=== PATIENT | female | born 1960 | race Caucasian/White ===

== ENCOUNTER 2018-03-17 07:15 | Day surgery (SDC) | END 2018-03-17 15:20 | disposition home or self-care (01) ==

== ENCOUNTER 2018-12-08 07:12 | Day surgery (SDC) | payer OTHER ==
[2018-12-08] VITALS (11 sets, daily range): BP systolic 110–162; BP diastolic 62–82; PULSE 57–76; RESP 12–17; Ht 157.5 cm; Wt 73.5 kg
[~2018-12-08] VITALS: Ht 157.5 cm; Wt 73.5 kg
[~2018-12-08 07:12] MED LIST: ATOR40TA68 PO; CALC1TAB79 PO; DIAZEPAM 5 MG TAB PO PRN; DIPHENHYDRAMINE 50 MG CAP PO PRN; FAMOTIDINE 20 MG TAB PO PRN; HYDR25TA6 PO; LOSA25TA12 PO; SOD CHLORIDE 0.45% 1,000 ML IV SCH; VIT1CAPS10 PO; VIT1TABL46 PO
[2018-12-08] MEDS ORDERED: ATOR10TA65 ORAL (08:44)
[2018-12-08] MEDS ORDERED: OMEP40CA6 ORAL (08:44)
[2018-12-08] MEDS ORDERED: GABA100C14 PO (08:44)
[2018-12-08] MEDS ORDERED: LIDOCAINE 1% (MDV) 20 ML INJ ONE (08:59)
[2018-12-08] MEDS ORDERED: IODIXANOL LOCM 100 ML BTL ONE ×2 (08:59→10:26)
[2018-12-08] MEDS ORDERED: HEPARIN 1000 UNITS/NS (A-LINE) 1,000 ML ONE (08:59)
[2018-12-08] MEDS ORDERED: MIDAZOLAM 1 MG/ML 2 ML INJ ONE (09:44)
[2018-12-08] MEDS ORDERED: FENTAnyl 50 MCG/ML VIAL ONE (09:44)
--- NOTE | 2018-12-08 10:39 | SIPON ---
Date/Time of Note Date/Time of Note DATE: 12/08/18 TIME: 10:38 Operative Report Preoperative Diagnosis 1.PAD 2.claudication Postoperative Diagnosis 1.mild non-obstructive cad Operation/Procedure Performed 1.AO with bilateral illiofemoral runoff Surgeon see signature line customer care assistant 1.Ben Anesthesia: moderate sedation Estimated blood loss: minimal Transfusion Required none Specimen none Grafts/Implants none Complications none ESSENCE CALABRESE Dec 08, 2018 10:39
[2018-12-08] MEDS ORDERED: SOD CHLORIDE 0.9% 1,000 ML IV SCH (10:40)
[2018-12-08] MEDS ORDERED: ACETAMINOPHEN 325 MG TAB PO PRN (11:00)
[2018-12-08] MEDS ORDERED: ONDANSETRON 4 MG INJ IV PRN (11:00)
[2018-12-08] MEDS ORDERED: morphine 2 MG INJ IV PRN (11:00)
[2018-12-08] MEDS ORDERED: AL HYDROX/MG HYDROX/SIMETH 30 ML CUP PO PRN (11:00)
--- NOTE | 2018-12-08 19:54 | CARRPT ---
DATE OF PROCEDURE: 12/08/2018 TYPE OF PROCEDURE: 1. Aortography. 2. Bilateral iliofemoral runoff. 3. Moderate conscious sedation. ATTENDING PHYSICIAN: Essence Gibson MD REFERRING PHYSICIAN: Self-referred. INDICATION: Leg pain concerning for claudication with arterial ultrasound revealing possible obstruc tive arterial disease. TYPE OF ANESTHESIA: Conscious and local. BRIEF HISTORY: Ms. Feldman is a 58-year-old female with a history of hypertension, dyslipidemia, per ipheral arterial disease who initially presented with complaints of leg pain concerning for claudicat ion. The patient subsequently underwent an arterial ultrasound revealing obstructive arterial diseas e, now being brought for an angiography to further assess possibility of significant obstructive zahida pheral arterial disease lending to symptoms of leg pain concerning for claudication. DESCRIPTION OF PROCEDURE: After informed consent was obtained, the patient was brought to the cathet erization lab where her right femoral area was prepped and draped in a sterile fashion. Lidocaine 2% was infiltrated into the right femoral area in order to achieve adequate anesthesia. Using the ana fied Seldinger technique, the right femoral artery was cannulated and a 6-Yoruba arterial sheath was placed. A 5-Yoruba Omniflush catheter was passed into the aorta and initially using a hand injector we attempted to pass by the renal arteries, this proved unsuccessful. Subsequently, using a power in jector, 20 mL of contrast was injected opacifying bilateral renal arteries. Omniflush was then pulle d above the iliac bifurcation and then we did segmental power injections, since we did not have a ful l runoff capability in this lab, of the iliacs, femorals, popliteals, and distal runoff at the feet a ll the way down. Subsequently, at this time, the patient's Omniflush catheter was removed. The kezia ent had a sonographic image through her right femoral arterial insertion site revealing the sheath to be well placed in the right common femoral artery. Subsequently, a 6-Yoruba Perclose device was use d to seal the vessels completing the procedure. There were no noted complications. FINDINGS: 1. Aortography: This showed the patient to have no significant stenosis of bilateral renal arteries . 2. Bilateral iliofemoral runoff: This revealed the patient on the right side to have no significant common or external iliac stenoses. No significant superficial artery stenosis. This significant po pliteal artery stenosis and intact 3-vessel runoff to the foot. On the left side, the patient had ve ry minimal plaquing of the common iliacs. No significant epicardial plaquing of the external iliac. Very minimal plaquing of the patient's superficial femoral artery, 10% to 20% stenosis. No signific ant blocks of the popliteal. This is a small anterior tibial artery, but no significant focal stenos es with an intact runoff all the way down to the foot with the peroneal appearing to stop somewhat sh orter in the left leg and the flow was somewhat sluggish towards the foot in the left leg compared to the right leg, likely consistent with microvascular disease, but there are no significant focal sten oses. TOTAL FLUOROSCOPY TIME: 5.3 minutes. TOTAL CONTRAST: 240 mL. IMPRESSION: Very mild nonobstructive peripheral arterial disease, probably more the left side than o n the right side with mildly more sluggish flow to the left side consistent with probable microvascul ar disease with intact 3-vessel runoff to the right side with 2-vessel runoff to the left side and th e perineal stops just short of the foot. RECOMMENDATIONS: 1. At this time, given the findings, would maximize medical therapy 2. Aggressive risk factor reduction. 3. Would recommend an exercise regimen for this patient to improve collateral flow in the foot. Dictated By: ESSENCE MYERS/DOLORES Conf#: [id number] DID#: [id number]
--- NOTE | 2018-12-11 16:12 | RADRPT ---
Vent Rate: 70 bpm RR Interval: 852 msec MO Interval: 197 msec QRS Duration: 93 msec QT Interval: 402 msec QTC Interval: 436 msec P-R-T [place]: 42 - 25 - 30 degrees Sinus rhythm...normal P axis, V-rate 50- 99 Electronically Signed By: Brandon Brian
== END 2018-12-08 16:50 | disposition home or self-care (01) ==
LOC: SDS 07:12
PROVIDERS: ATTEND Internal Medicine
DX: I73.9 Peripheral vascular disease, unspecified (principal); I10 Essential (primary) hypertension; E78.5 Hyperlipidemia, unspecified
CPT/HCPCS: 36200; 71045; 75630; 80048; 80061; 85025; 85610; 85730; 93005; C1760; C1894; J1644; J2250; J3010; Q9967; Z7610